=== PATIENT | female | born 2000 | race Caucasian/White ===

== ENCOUNTER 2021-01-26 07:20 | Emergency (ER) | payer OTHER ==
[~2021-01-26 07:20] MED LIST: PROVENTIL HFA6.7 GM INH
[2021-01-26 08:32] LABS: BASOPHIL 0.2 % (0-2); EOSINOPHIL 5.7 % (0-5); HCT 42.4 % (37.0-47.0); HGB 13.8 g/dl (12.5-16.0); LYMPHOCYTE 28.5 % (15-48); MCH 27.3 pg (25.0-31.0); MCHC 32.5 g/dL (32.0-36.0); MONOCYTE 7.6 % (0-12); MPV 10.5 fL (6.0-9.5); NEUTROPHIL 57.7 % (41-80); NRBC 0; PLT 345 K/uL (150-400); RBC 5.05 M/uL (4.20-5.40); RDW 13.4 % (11.5-14.0); WBC 13.6 K/uL (4.0-10.5)
[2021-01-26 08:55] LABS: BILIRUBIN - TOTAL 0.2 mg/dL (0.2-1.0); BUN/CREAT RATIO (CALC) 7.7 RATIO; CREATININE 0.78 mg/dL (0.51-0.95); FT4 (FREE T4) 1.1 ng/dL (0.76-1.46); GLOBULIN (CALCULATION) 3.1 g/dL; POTASSIUM 3.7 mmol/L (3.5-5.1); TOTAL PROTEIN 7.1 g/dL (6.4-8.2)
[2021-01-26] MEDS ORDERED: KEFLEX750 MG PO (09:11)
[2021-01-27 15:10] LABS: THYROGLOBULIN ANTIBODY 5.5 IU/mL (0.0-0.9)
== END 2021-01-26 09:41 | disposition home or self-care (01) ==
LOC: FER 07:20
PROVIDERS: Emergency Medicine
DX: E04.9 Nontoxic goiter, unspecified (principal); F17.210 Nicotine dependence, cigarettes, uncomplicated
CPT/HCPCS: 36415; 80053; 84432; 84439; 84443; 85025; 86376; 99283

== ENCOUNTER 2021-06-05 21:47 | Emergency (ER) | payer SELFPAY ==
[~2021-06-05 21:47] MED LIST changes: +KEFLEX750 MG PO
[2021-06-05] MEDS ORDERED: PREDNISONE20 MG PO (23:58)
[2021-06-05] MEDS ORDERED: ATARAX25 MG PO (23:58)
[2021-06-05] MEDS ORDERED: CEPHALEXIN500 MG PO (23:58)
== END 2021-06-06 01:15 | disposition home or self-care (01) ==
LOC: FER 21:47
DX: L25.9 Unspecified contact dermatitis, unspecified cause (principal); L03.811 Cellulitis of head [any part, except face]
CPT/HCPCS: J2930

== ENCOUNTER 2022-01-01 13:59 | Emergency (ER) | payer SELFPAY ==
[~2022-01-01 13:59] MED LIST changes: +ATARAX25 MG PO; +CEPHALEXIN500 MG PO; +PREDNISONE20 MG PO
[2022-01-01 15:48] LABS: BILIRUBIN NEGATIVE (NEGATIVE); BLOOD NEGATIVE Ery/uL (NEGATIVE); CLARITY CLEAR (CLEAR); COLOR YELLOW (YELLOW); GLUCOSE (U) NORMAL (NORMAL); LEUKOCYTES NEGATIVE Leu/uL (NEGATIVE); NITRITE NEGATIVE (NEGATIVE); PROTEIN NEGATIVE (NEGATIVE); SPECIFIC GRAVITY 1.025 (1.001-1.030); UROBILINOGEN 0.2 mg/dL (0.2-1.0)
[2022-01-01 16:27] LABS: BASOPHIL 0.5 % (0-2); EOSINOPHIL 3.8 % (0-5); HCT 44.9 % (37.0-47.0); HGB 14.8 g/dl (12.5-16.0); LYMPHOCYTE 33.7 % (15-48); MCV 84.9 fL (78.0-100.0); MONOCYTE 7.4 % (0-12); MPV 9.9 fL (6.0-9.5); NEUTROPHIL 54.2 % (41-80); NRBC 0; PLT 356 K/uL (150-400); RBC 5.29 M/uL (4.20-5.40); RDW 12.9 % (11.5-14.0); WBC 10.6 K/uL (4.0-10.5)
[2022-01-01 16:51] LABS: ALBUMIN 4.1 g/dL (3.4-5.0); BILIRUBIN - TOTAL 0.3 mg/dL (0.2-1.0); BUN/CREAT RATIO (CALC) 8.5 RATIO; CREATININE 0.71 mg/dL (0.51-0.95); GLOBULIN (CALCULATION) 3.4 g/dL; POTASSIUM 3.8 mmol/L (3.5-5.1); TOTAL PROTEIN 7.5 g/dL (6.4-8.2)
[2022-01-01] MEDS ORDERED: PRENATAL FORMU1 EACH PO (18:49)
[2022-01-01] MEDS ORDERED: DICLEGIS DR 101 EACH PO (18:49)
== END 2022-01-01 19:20 | disposition home or self-care (01) ==
LOC: FER 13:59
PROVIDERS: Emergency Medicine; Physician Assistant
DX: O34.80 Maternal care for other abnormalities of pelvic organs, unspecified trimester (principal); N83.201 Unspecified ovarian cyst, right side; O21.9 Vomiting of pregnancy, unspecified; O99.519 Diseases of the respiratory system complicating pregnancy, unspecified trimester; J45.909 Unspecified asthma, uncomplicated; O99.330 Smoking (tobacco) complicating pregnancy, unspecified trimester; F17.210 Nicotine dependence, cigarettes, uncomplicated
CPT/HCPCS: 36415; 76817; 80053; 81003; 84702; 85025